=== PATIENT | male | born 1970 | race Two or more races ===

== ENCOUNTER 2023-01-25 11:40 | Inpatient (IN) | payer OTHER ==
[2023-01-25 12:19] VITALS: BMI 24.1
[2023-01-25] MEDS ORDERED: BENZOCAINE/MENTHOL (CHLORASEPTIC ) LOZENGE MM PRN (12:55)
[2023-01-25] MEDS ORDERED: ACETAMINOPHEN 325 MG TABLET (FP) PO PRN (12:55)
[2023-01-25] MEDS ORDERED: BENZONATATE 200 MG CAPSULE PO PRN (12:55)
[2023-01-25] MEDS ORDERED: NALOXONE HCL 0.4 MG/ML VIAL IM PRN (12:55)
[2023-01-25] MEDS ORDERED: IBUPROFEN 600 MG TABLET (FP) PO PRN (12:55)
[2023-01-25] MEDS ORDERED: MAGNESIUM HYDROX 2400MG/30ML ORAL SUSPENSION 30 ML CUP PO PRN (12:55)
[2023-01-25] MEDS ORDERED: LOPERAMIDE HCL 2 MG CAPSULE PO PRN (12:55)
[2023-01-25] MEDS ORDERED: DICYCLOMINE HCL 10 MG CAPSULE PO PRN (12:55)
[2023-01-25] MEDS ORDERED: guaiFENesin 600 MG TABLET.ER (FP) PO PRN (12:55)
[2023-01-25] MEDS ORDERED: ONDANSETRON *ODT* 4 MG TABLET SL PRN (12:55)
[2023-01-25] MEDS ORDERED: LORazepam 1 MG TABLET PO PRN (12:55)
[2023-01-25] MEDS ORDERED: POLYETHYLENE GLYCOL (HEALTHYLAX) 3350 17 GM PACKET PO PRN (12:55)
[2023-01-25] MEDS ORDERED: METHOCARBAMOL 500 MG TABLET PO PRN (12:55)
[2023-01-25] MEDS ORDERED: hydrOXYzine PAMOATE 25 MG CAPSULE (FP) PO PRN (12:55)
[2023-01-25] MEDS ORDERED: IBUPROFEN 400 MG TABLET (FP) PO PRN (12:55)
[2023-01-25] MEDS ORDERED: NALOXONE HCL (KLOXXADO) 8 MG SPRAY NS PRN (12:55)
[2023-01-25] MEDS ORDERED: BISMUTH SUBSALICYLATE 524 MG/30 ML PO PRN (12:55)
[2023-01-25] MEDS ORDERED: MAG HYDROX/AL HYDROX/SIMETH 30 ML UNIT-DOSE CUP PO PRN (12:55)
[2023-01-25] MEDS ORDERED: PRENATAL VITAMINS W/ FOLIC ACID TABLET (FP) PO ONE (13:36)
[2023-01-25] MEDS: NICOTINE 14 MG/24 HOURS TOPICAL PATCH TD SCH (13:44)
[2023-01-25] MEDS: PRENATAL VITAMINS W/ FOLIC ACID TABLET (FP) PO SCH (13:45)
[2023-01-25 16:21] LABS: HEMOGLOBIN 13.7 GM/dL (11.7-16.9); MCH 26.8 pg (25.7-33.7); MCHC 32.6 g/dl (32.0-35.9); MEAN CELL VOLUME 82.2 fl (80-96); MEAN PLT VOLUME 8.8 fl (7.5-11.1); PLATELET COUNT 242 10^3/uL (134-434); WHITE BLOOD COUNT 5.7 K/mm3 (4.0-10.0)
[2023-01-25 16:30] LABS: POTASSIUM 5.2 mmol/L (3.5-5.1)
[2023-01-25] MEDS ORDERED: INSULIN (NOVOLOG) ASPART 100 UNITS/ML 10ML VIAL SQ SCH (16:30)
[2023-01-25 16:36] LABS: ALBUMIN 3.8 g/dl (3.4-5.0); BLOOD UREA NITROGEN 11.4 mg/dL (7-18); CALCIUM 9.2 mg/dL (8.5-10.1)
[2023-01-25 16:39] LABS: CREATININE 0.8 mg/dL (0.55-1.3)
[2023-01-25 16:41] LABS: BILIRUBIN,TOTAL 0.4 mg/dL (0.2-1); TOT PROT 7.1 g/dl (6.4-8.2)
[2023-01-25] MEDS ORDERED: INSULIN (NOVOLOG) ASPART 100 UNITS/ML 10ML VIAL ONE (17:13)
[2023-01-25] MEDS: metFORMIN HCL 500 MG TABLET (FP) PO SCH (17:27)
[2023-01-25] MEDS: LORazepam 2 MG TABLET PO SCH ×2 (17:29→22:57)
[2023-01-25] MEDS: INSULIN SLIDING SCALE (NOVOLOG) 1 VIAL SQ SCH (20:30)
[2023-01-25] MEDS: THIAMINE HCL 100 MG TABLET (FP) PO SCH (22:57)
[2023-01-25] MEDS: MELATONIN 5 MG TABLETS PO SCH (22:59)
[2023-01-25] MEDS: INSULIN (LEVEMIR) 100 UNITS/ML UNITS SQ SCH (23:42)
[2023-01-26] MEDS: LORazepam 2 MG TABLET PO SCH ×4 (05:58→22:00)
[2023-01-26] MEDS: INSULIN SLIDING SCALE (NOVOLOG) 1 VIAL SQ SCH ×3 (06:03→17:17)
[2023-01-26] MEDS: metFORMIN HCL 500 MG TABLET (FP) PO SCH ×2 (06:13→17:17)
[2023-01-26] MEDS: PRENATAL VITAMINS W/ FOLIC ACID TABLET (FP) PO SCH (10:41)
[2023-01-26] MEDS: NICOTINE 14 MG/24 HOURS TOPICAL PATCH TD SCH (10:42)
[2023-01-26] MEDS ORDERED: INSULIN (NOVOLOG) ASPART 100 UNITS/ML 10ML VIAL ONE (11:04)
[2023-01-26] MEDS: CLOTRIMAZOLE 1% CREAM TP SCH ×2 (13:20→22:01)
[2023-01-26] MEDS: LACTULOSE 20 GM/30 ML UDC (FOR ORAL USE ONLY) PO SCH ×3 (13:34→22:00)
[2023-01-26] MEDS: THIAMINE HCL 100 MG TABLET (FP) PO SCH (22:00)
[2023-01-26] MEDS: MELATONIN 5 MG TABLETS PO SCH (22:01)
[2023-01-26] MEDS: INSULIN (LEVEMIR) 100 UNITS/ML UNITS SQ SCH (22:01)
[2023-01-27] MEDS: LORazepam 1 MG TABLET PO SCH ×4 (06:00→22:34)
[2023-01-27] MEDS: metFORMIN HCL 500 MG TABLET (FP) PO SCH ×2 (06:11→17:23)
[2023-01-27] MEDS: INSULIN SLIDING SCALE (NOVOLOG) 1 VIAL SQ SCH ×3 (06:13→17:23)
[2023-01-27] MEDS: LACTULOSE 20 GM/30 ML UDC (FOR ORAL USE ONLY) PO SCH ×4 (10:30→23:23)
[2023-01-27] MEDS: PRENATAL VITAMINS W/ FOLIC ACID TABLET (FP) PO SCH (10:31)
[2023-01-27] MEDS: CLOTRIMAZOLE 1% CREAM TP SCH ×2 (10:31→22:35)
[2023-01-27] MEDS: NICOTINE 14 MG/24 HOURS TOPICAL PATCH TD SCH (10:32)
[2023-01-27] MEDS ORDERED: INSULIN (NOVOLOG) ASPART 100 UNITS/ML 10ML VIAL ONE (17:16)
[2023-01-27] MEDS: MELATONIN 5 MG TABLETS PO SCH (22:35)
[2023-01-27] MEDS: INSULIN (LEVEMIR) 100 UNITS/ML UNITS SQ SCH (22:35)
[2023-01-27] MEDS: THIAMINE HCL 100 MG TABLET (FP) PO SCH (22:35)
[2023-01-28] MEDS ORDERED: LORazepam 0.5 MG TABLET PO PRN
[2023-01-28] MEDS: LORazepam 0.5 MG TABLET PO SCH ×4 (05:55→22:11)
[2023-01-28] MEDS ORDERED: INSULIN (NOVOLOG) ASPART 100 UNITS/ML 10ML VIAL ONE ×2 (06:21→11:15)
[2023-01-28] MEDS: metFORMIN HCL 500 MG TABLET (FP) PO SCH ×2 (06:49→17:19)
[2023-01-28] MEDS: INSULIN SLIDING SCALE (NOVOLOG) 1 VIAL SQ SCH ×3 (06:51→17:18)
[2023-01-28 09:48] VITALS: RESP 18
[2023-01-28 10:35] LABS: POTASSIUM 4.5 mmol/L (3.5-5.1)
[2023-01-28] MEDS: LACTULOSE 20 GM/30 ML UDC (FOR ORAL USE ONLY) PO SCH ×4 (10:36→22:08)
[2023-01-28] MEDS: NICOTINE 14 MG/24 HOURS TOPICAL PATCH TD SCH (10:37)
[2023-01-28] MEDS: PRENATAL VITAMINS W/ FOLIC ACID TABLET (FP) PO SCH (10:37)
[2023-01-28] MEDS: CLOTRIMAZOLE 1% CREAM TP SCH ×2 (10:38→22:11)
[2023-01-28 10:43] LABS: CALCIUM 8.9 mg/dL (8.5-10.1); CREATININE 0.7 mg/dL (0.55-1.3)
[2023-01-28] MEDS: MELATONIN 5 MG TABLETS PO SCH (22:10)
[2023-01-28] MEDS: THIAMINE HCL 100 MG TABLET (FP) PO SCH (22:10)
[2023-01-28] MEDS: INSULIN (LEVEMIR) 100 UNITS/ML UNITS SQ SCH (22:11)
[2023-01-29] MEDS ORDERED: LORazepam 0.5 MG TABLET PO ONE (05:00)
[2023-01-29] MEDS: metFORMIN HCL 500 MG TABLET (FP) PO SCH (07:04)
[2023-01-29] MEDS: INSULIN SLIDING SCALE (NOVOLOG) 1 VIAL SQ SCH (07:05)
[2023-01-29 08:59] VITALS: BP 112/70; PULSE 67; TEMP 98
[2023-01-29] MEDS: PRENATAL VITAMINS W/ FOLIC ACID TABLET (FP) PO SCH (10:24)
[2023-01-29] MEDS: NICOTINE 14 MG/24 HOURS TOPICAL PATCH TD SCH (10:24)
[2023-01-29] MEDS: CLOTRIMAZOLE 1% CREAM TP SCH (10:25)
[2023-01-29] MEDS: LACTULOSE 20 GM/30 ML UDC (FOR ORAL USE ONLY) PO SCH (10:25)
== END 2023-01-29 11:10 | disposition home or self-care (01) | DRG 775 ==
LOC: YASAS 11:40 → Y6N 13:42
PROVIDERS: ADMIT Allergy & Immunology; ATTEND Surgery
PROC: HZ2ZZZZ Detoxification Services for Substance Abuse Treatment (ICD-10-PCS; principal; 2023-01-25)
DX: F10.230 Alcohol dependence with withdrawal, uncomplicated (principal); F17.210 Nicotine dependence, cigarettes, uncomplicated; F10.24 Alcohol dependence with alcohol-induced mood disorder; F10.282 Alcohol dependence with alcohol-induced sleep disorder; E11.9 Type 2 diabetes mellitus without complications; Z79.4 Long term (current) use of insulin; R79.89 Other specified abnormal findings of blood chemistry; R74.01 Elevation of levels of liver transaminase levels; Z56.0 Unemployment, unspecified; Z59.02 Unsheltered homelessness
CPT/HCPCS: 36415; 80048; 80053; 82140; 82962; 83036; 85027; 86780; 87635; 87811; 93005; 93010